=== PATIENT | female | born 1970 | race Caucasian/White ===

== ENCOUNTER 2016-12-25 10:21 | Emergency (ER) | payer OTHER ==
[~2016-12-25] VITALS: Ht 170.2 cm; Wt 62.6 kg
[2016-12-25 12:52] VITALS: BP 132/76
== END 2016-12-25 12:52 | disposition home or self-care (01) ==
LOC: EME 10:21
DX: M79.671 Pain in right foot (principal); M25.571 Pain in right ankle and joints of right foot; F17.200 Nicotine dependence, unspecified, uncomplicated
CPT/HCPCS: 73630; 99281; 99284

== ENCOUNTER 2017-01-19 16:12 | Emergency (ER) | payer OTHER ==
[~2017-01-19] VITALS: Ht 170.2 cm; Wt 62.7 kg
[2017-01-19 19:02] VITALS: BP 155/45
== END 2017-01-19 19:13 | disposition home or self-care (01) ==
LOC: EME 16:12
DX: S93.401A Sprain of unspecified ligament of right ankle, initial encounter (principal); X58.XXXA Exposure to other specified factors, initial encounter; F17.200 Nicotine dependence, unspecified, uncomplicated
CPT/HCPCS: 73610; 73630; J1885

== ENCOUNTER 2017-03-02 10:47 | Emergency (ER) | payer SELFPAY ==
[~2017-03-02] VITALS: Ht 170.2 cm; Wt 61.9 kg
[2017-03-02] MEDS ORDERED: ZITHROMAX Z-PA250 MG PO (13:10)
[2017-03-02] MEDS ORDERED: ALLEGRA-D 121 TABLET PO (13:10)
[2017-03-02 13:52] VITALS: BP 155/80
== END 2017-03-02 13:53 | disposition home or self-care (01) ==
LOC: EME 10:47
DX: H66.92 Otitis media, unspecified, left ear (principal); F17.200 Nicotine dependence, unspecified, uncomplicated; Z88.5 Allergy status to narcotic agent; Z88.0 Allergy status to penicillin